=== PATIENT | female | born 2005 | race Caucasian/White ===

== ENCOUNTER 2024-04-05 08:33 | Inpatient (IN) | payer OTHER ==
[2024-04-05] MEDS: ELECTROLYTE-148 SOLN 1,000 ML IV SCH (09:15)
[2024-04-05 09:41] VITALS: BMI 36.3
[2024-04-05 09:48] LABS: INR 0.97 (0.83-1.09)
[2024-04-05 09:51] LABS: ACTIVATED PTT 29.9 SECONDS (25.2-36.5)
[2024-04-05 09:53] LABS: BASO % 0.4 % (0-2.0); EOS % 0.3 % (0-4.5); HEMATOCRIT 31.6 % (32.4-45.2); HEMOGLOBIN 10.5 GM/dL (10.7-15.3); LYMPH % 19.5 % (8-40); MCH 26.2 pg (25.7-33.7); MCHC 33.1 g/dl (32.0-36.0); MEAN CELL VOLUME 79.3 fl (80-96); MEAN PLT VOLUME 8.4 fl (7.5-11.1); MONO % 5.1 % (3.8-10.2); NEUT % 74.7 % (42.8-82.8); PLATELET COUNT 245 10^3/uL (134-434); RBC 3.99 M/mm3 (3.60-5.2); RDW 15.7 % (11.6-15.6); WHITE BLOOD COUNT 8.9 K/mm3 (4.0-10.0)
[2024-04-05 09:58] LABS: POTASSIUM 3.9 mmol/L (3.5-5.1)
[2024-04-05 10:00] LABS: BLOOD UREA NITROGEN 13.6 mg/dL (7-18); CALCIUM 8.8 mg/dL (8.5-10.1)
[2024-04-05 10:03] LABS: CREATININE 0.8 mg/dL (0.55-1.3)
[2024-04-05] MEDS ORDERED: OXYTOCIN 20 UNITS in 0.9% NS 20 UNIT/1,000 ML INFUS.BAG IV ONE (16:22)
[2024-04-05] MEDS ORDERED: LIDOCAINE HCL 1% PRESERVATIVE FREE - 30ML VIAL ONE (16:57)
[2024-04-05] MEDS: OXYTOCIN 20 UNITS in 0.9% NS 20 UNIT/1,000 ML INFUS.BAG IV SCH ×2 (17:05→22:52)
[2024-04-05] MEDS ORDERED: BENZOCAINE 20% 57 GM BOTTLE TP PRN (17:58)
[2024-04-05] MEDS ORDERED: METHYLERGONOVINE MALEATE 0.2 MG/1 ML AMP IM PRN (17:58)
[2024-04-05] MEDS ORDERED: WITCH HAZEL 50% (TUCKS) 40 PAD/JAR PAD TP PRN (17:58)
[2024-04-05] MEDS ORDERED: BENZOCAINE 28 GM HEMORRHOIDAL OINTMENT TP PRN (17:58)
[2024-04-05] MEDS ORDERED: BISACODYL 10 MG SUPP.RECT RC PRN (17:58)
[2024-04-05] MEDS ORDERED: PROPOFOL 20 ML ONE (18:47)
[2024-04-05] MEDS ORDERED: ONDANSETRON 4 MG/2 ML VIAL IVPUSH PRN (19:25)
[2024-04-05] MEDS ORDERED: LACTATED RINGERS SOLUTION 1,000 ML IV SCH (19:30)
[2024-04-05 20:52] LABS: HEMATOCRIT 30.8 % (32.4-45.2); HEMOGLOBIN 9.9 GM/dL (10.7-15.3); MCH 25.4 pg (25.7-33.7); MEAN CELL VOLUME 79.3 fl (80-96); MEAN PLT VOLUME 8.1 fl (7.5-11.1); PLATELET COUNT 223 10^3/uL (134-434); RBC 3.89 M/mm3 (3.60-5.2); RDW 15.9 % (11.6-15.6); WHITE BLOOD COUNT 14.9 K/mm3 (4.0-10.0)
[2024-04-06 07:10] LABS: BASO % 0.1 % (0-2.0); HEMOGLOBIN 7.6 GM/dL (10.7-15.3); MCH 25.1 pg (25.7-33.7); MCHC 31.7 g/dl (32.0-36.0); MEAN CELL VOLUME 79.2 fl (80-96); MEAN PLT VOLUME 8.4 fl (7.5-11.1); NEUT % 81.9 % (42.8-82.8); PLATELET COUNT 211 10^3/uL (134-434); RBC 3.03 M/mm3 (3.60-5.2); WHITE BLOOD COUNT 13.6 K/mm3 (4.0-10.0)
[2024-04-06] MEDS: FERROUS SO4 325 MG TABLET (FP) PO SCH (11:50)
[2024-04-06 14:23] LABS: BASO % 0.2 % (0-2.0); HEMOGLOBIN 7.3 GM/dL (10.7-15.3); LYMPH % 11.8 % (8-40); MCH 25.5 pg (25.7-33.7); MCHC 31.6 g/dl (32.0-36.0); MEAN CELL VOLUME 80.5 fl (80-96); MEAN PLT VOLUME 8.3 fl (7.5-11.1); MONO % 7.6 % (3.8-10.2); NEUT % 80.4 % (42.8-82.8); PLATELET COUNT 226 10^3/uL (134-434); RBC 2.86 M/mm3 (3.60-5.2); RDW 15.5 % (11.6-15.6); WHITE BLOOD COUNT 15.1 K/mm3 (4.0-10.0)
[2024-04-06 14:30] VITALS: RESP 18
[2024-04-06] MEDS: IBUPROFEN 600 MG TABLET (FP) PO PRN (19:23)
[2024-04-06] MEDS: SENNOSIDES/DOCUSATE COMBO (SENNA PLUS) TABLET (UD) PO PRN (19:24)
[2024-04-06] MEDS: ACETAMINOPHEN 325 MG TABLET (FP) PO PRN (23:35)
[2024-04-07 09:13] VITALS: BP 100/59; PULSE 107; TEMP 98.5
== END 2024-04-07 18:14 | disposition home or self-care (01) | DRG 560 ==
LOC: JDEL 08:33 → JLDR 09:00 → J3W 21:50
PROVIDERS: ADMIT Obstetrics & Gynecology Obstetrics; ATTEND Obstetrics & Gynecology Obstetrics
PROC: 0UQMXZZ Repair Vulva, External Approach (ICD-10-PCS; 2024-04-05)
PROC: 0KQM0ZZ Repair Perineum Muscle, Open Approach (ICD-10-PCS; 2024-04-05)
PROC: 10E0XZZ Delivery of Products of Conception, External Approach (ICD-10-PCS; principal; 2024-04-05 17:53)
DX: O48.0 Post-term pregnancy (principal); O70.1 Second degree perineal laceration during delivery; Z3A.40 40 weeks gestation of pregnancy; Z37.0 Single live birth
CPT/HCPCS: 36415; 59409; 80048; 85025; 85027; 85610; 85730; 86780; 86850; 86900; 86901; 86922; 94760